=== PATIENT | male | born 1985 | race Caucasian/White ===

== ENCOUNTER 2016-07-12 21:03 | Emergency (ER) | payer SELFPAY ==
--- NOTE | 2016-07-12 21:17 | ER Document Report ---
ED Medical Screen (RME) - General Stated Complaint: POSSIBLE RASH Time seen by provider: 21:14 Mode of Arrival: Ambulatory Information source: Patient Notes: 31-year-old male thought he had jock itch because he had a rash on inner thighs 3 days ago. Today he noticed a knot on the left side of his scrotum near the base of the penis and now he is scared. He had unprotected intercourse and oral sex with new partners. He also has ulcers in his mouth, has been smoking crystal meth in the mornings for several weeks for energy. TRAVEL OUTSIDE OF THE [place] IN LAST 30 DAYS: No - Related Data Allergies/Adverse Reactions: No Known Allergies Allergy (Verified 01/07/13 09:40) Past Medical History Renal/ Medical History: Reports: Hx Kidney Stones - Immunizations Hx Diphtheria, Pertussis, Tetanus Vaccination: No Physical Exam - Vital signs Vitals: Temp Pulse Resp BP Pulse Ox 98.4 F 99 17 142/100 H 95 07/12/16 21:11 07/12/16 21:11 07/12/16 21:11 07/12/16 21:11 07/12/16 21:11 Course - Vital Signs Vital signs: Temp Pulse Resp BP Pulse Ox 98.4 F 99 17 142/100 H 95 07/12/16 21:11 07/12/16 21:11 07/12/16 21:11 07/12/16 21:11 07/12/16 21:11
[2016-07-12] MEDS ORDERED: HYDROCODONE/ACETAMINOPHEN 5-325 MG TABLET PO ONE (22:49)
[2016-07-12] MEDS ORDERED: IBUPROFEN 600 MG TABLET PO ONE (22:49)
[2016-07-12] MEDS ORDERED: SULFAMETHOXAZOLE/TRIMETHOPRIM 800-160 MG TABLET PO ONE (22:49)
--- NOTE | 2016-07-12 22:52 | ER Document Report ---
ED General - General Chief Complaint: Abscess Stated Complaint: POSSIBLE RASH Mode of Arrival: Ambulatory Notes: Patient is a 31 -year-old male without past medical history who presents with 2 days of progressively worsening pain to the left superior scrotum. Describes there is a constant dull, throbbing pain. Worsened by touching the area. Nothing improves the pain. No history of similar symptoms in the past. He denies any constitutional symptoms. No nausea, vomiting or abdominal pain. He has not seen his primary care physician regarding today's concerns. TRAVEL OUTSIDE OF THE [place] IN LAST 30 DAYS: No - Related Data Allergies/Adverse Reactions: No Known Allergies Allergy (Verified 01/07/13 09:40) Past Medical History - General Information source: Patient - Social History Smoking Status: Current Every Day Smoker Chew tobacco use (# tins/day): No Frequency of alcohol use: Social Drug Abuse: Methamphetamine Lives with: Alone Family History: Hypertension Patient has suicidal ideation: No Patient has homicidal ideation: No Renal/ Medical History: Reports: Hx Kidney Stones. Denies: Hx Peritoneal Dialysis Surgical Hx: Negative - Immunizations Hx Diphtheria, Pertussis, Tetanus Vaccination: No Review of Systems - Review of Systems Notes: Constitutional: Negative for fever. HENT: Negative for sore throat. Eyes: Negative for visual changes. Cardiovascular: Negative for chest pain. Respiratory: Negative for shortness of breath. Gastrointestinal: Negative for abdominal pain, vomiting or diarrhea. Genitourinary: Negative for dysuria. Positive for scrotal pain Musculoskeletal: Negative for back pain. Skin: Negative for rash. Neurological: Negative for headaches, weakness or numbness. 10 point ROS negative except as marked above and in HPI. Physical Exam - Vital signs Vitals: Temp Pulse Resp BP Pulse Ox 98.4 F 99 17 142/100 H 95 07/12/16 21:11 07/12/16 21:11 07/12/16 21:11 07/12/16 21:11 07/12/16 21:11 Interpretation: Hypertensive Notes: PHYSICAL EXAMINATION: GENERAL: Well-appearing, well-nourished and in no acute distress. HEAD: Atraumatic, normocephalic. EYES: Pupils equal round and reactive to light, extraocular movements intact, sclera anicteric, conjunctiva are normal. ENT: nares patent, oropharynx clear without exudates. Moist mucous membranes. NECK: Normal range of motion, supple without lymphadenopathy LUNGS: Breath sounds clear to auscultation bilaterally and equal. No wheezes rales or rhonchi. HEART: Regular rate and rhythm without murmurs ABDOMEN: Soft, nontender, normoactive bowel sounds. No guarding, no rebound. No masses appreciated. : There is a 0.5cmX0.5cm abscess to the left superior scrotum, painful on palpation. EXTREMITIES: Normal range of motion, no pitting or edema. No cyanosis. NEUROLOGICAL: No focal neurological deficits. Moves all extremities spontaneously and on command. PSYCH: Normal mood, normal affect. SKIN: Warm, Dry, normal turgor, no rashes or lesions noted. Course - Re-evaluation Re-evalutation: 07/13/16 01:47 Patient presents with a small abscess to the left superior scrotal wall which was incised and drained without difficulty. He will be started on TMP-SMX. Extensive counseling regarding his meth use also provided. Patient is otherwise well in appearance, vitals wnl. At this time will discharge with return precautions and follow-up recommendations. Verbal discharge instructions given a the bedside and opportunity for questions given. Medication warnings reviewed. Patient is in agreement with this plan and has verbalized understanding of return precautions and the need for primary care follow-up in the next 24-72 hours. - Vital Signs Vital signs: Temp Pulse Resp BP Pulse Ox 98.4 F 85 16 138/96 H 97 07/12/16 23:00 07/12/16 23:00 07/12/16 23:00 07/12/16 23:00 07/12/16 23:00 Discharge - Discharge Clinical Impression: Scrotal abscess Condition: Good Disposition: HOME, SELF-CARE Additional Instructions: You were seen for an abscess that required drainage. Please clean this area with soap and water twice daily and apply a topical antibiotic. Dress the area after each cleaning. Please return if you develop fever, vomiting, the pain at the site worsens, you notice spreading redness from the area, or you have any other symptoms that are concerning to you. Take care of yourself. You are young and have lots of life left to live. Don't use meth. Prescriptions: Sulfamethoxazole/Trimethoprim [Bactrim Ds Tablet] 2 each PO BID #20 tablet Forms: Return to Work
[2016-07-12 23:24] LABS: CHLAM PCR NOT DETECTED (NOT DETECT)
[2016-07-12 23:35] VITALS: BP 138/96
== END 2016-07-12 23:20 | disposition home or self-care (01) ==
LOC: ER 21:03
PROC: 0H9AXZZ Drainage of Inguinal Skin, External Approach (ICD-10-PCS; principal; 2016-07-12)
DX: N49.2 Inflammatory disorders of scrotum (principal); F17.200 Nicotine dependence, unspecified, uncomplicated; Z87.442 Personal history of urinary calculi
CPT/HCPCS: 87491; 87591; 99283

== ENCOUNTER 2016-07-15 16:18 | Emergency (ER) | payer SELFPAY ==
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
[2016-07-15 17:34] LABS: APPEARANCE,URINE CLEAR; BILIRUBIN,URINE NEGATIVE (NEGATIVE); GLUCOSE, URINE NEGATIVE (NEGATIVE); KETONES,URINE NEGATIVE (NEGATIVE); LEUKOCYTE ESTERASE,URINE NEGATIVE (NEGATIVE); NITRITE,URINE NEGATIVE (NEGATIVE); PROTEIN,URINE NEGATIVE (NEGATIVE); URINE SPECIFIC GRAVITY 1.003; UROBILINOGEN,URINE NEGATIVE mg/dL (<2.0)
[2016-07-15] MEDS ORDERED: HYDROMORPHONE HCL INJ/PF 2 MG/ML AMPULE IM ONE (18:12)
[2016-07-15] MEDS ORDERED: HYDROCODONE/ACETAMINOPHEN 5-325 MG 6 TAB/DSPK PO PRN (18:15)
--- NOTE | 2016-07-15 18:16 | ER Document Report ---
ED General - General Chief Complaint: Abscess Stated Complaint: POSSIBLE ABSCESS Mode of Arrival: Ambulatory Notes: Patient is a 31-year-old patient was seen in the emergency department 3 days ago for a left scrotal abscess who presents with worsening swelling to the area. He does describe ongoing dull, aching pain that is worsened by touching the area or being rubbed by clothing. Nothing improves the pain. Denies any associated spreading redness, fever, nausea, vomiting, abdominal pain, or dysuria. No testicular pain. He has not followed up with his primary care physician but states he is taking the antibiotics as directed from the prior visit. TRAVEL OUTSIDE OF THE [place] IN LAST 30 DAYS: No - Related Data Allergies/Adverse Reactions: No Known Allergies Allergy (Verified 07/15/16 17:00) Past Medical History - General Information source: Patient - Social History Smoking Status: Current Every Day Smoker Chew tobacco use (# tins/day): Yes Frequency of alcohol use: None Drug Abuse: None Lives with: Alone Family History: Hypertension Patient has suicidal ideation: No Patient has homicidal ideation: No Renal/ Medical History: Reports: Hx Kidney Stones. Denies: Hx Peritoneal Dialysis - Immunizations Hx Diphtheria, Pertussis, Tetanus Vaccination: No Review of Systems - Review of Systems Notes: Constitutional: Negative for fever. HENT: Negative for sore throat. Eyes: Negative for visual changes. Cardiovascular: Negative for chest pain. Respiratory: Negative for shortness of breath. Gastrointestinal: Negative for abdominal pain, vomiting or diarrhea. Genitourinary: Negative for dysuria. Positive for scrotal pain Musculoskeletal: Negative for back pain. Skin: Positive for swelling of the left scrotum Neurological: Negative for headaches, weakness or numbness. 10 point ROS negative except as marked above and in HPI. Physical Exam - Vital signs Vitals: Temp Pulse Resp BP Pulse Ox 98.1 F 90 16 146/92 H 96 07/15/16 16:36 07/15/16 16:36 07/15/16 16:36 07/15/16 16:36 07/15/16 16:36 Interpretation: Hypertensive Notes: PHYSICAL EXAMINATION: GENERAL: Well-appearing, well-nourished and in no acute distress. HEAD: Atraumatic, normocephalic. EYES: Pupils equal round and reactive to light, extraocular movements intact, sclera anicteric, conjunctiva are normal. ENT: nares patent, oropharynx clear without exudates. Moist mucous membranes. NECK: Normal range of motion, supple without lymphadenopathy LUNGS: Breath sounds clear to auscultation bilaterally and equal. No wheezes rales or rhonchi. HEART: Regular rate and rhythm without murmurs ABDOMEN: Soft, nontender, normoactive bowel sounds. No guarding, no rebound. No masses appreciated. : There is a 0.5 cm x 0.5 cm area of swelling to the left superior scrotum. Firm. No fluctuence. EXTREMITIES: Normal range of motion, no pitting or edema. No cyanosis. NEUROLOGICAL: No focal neurological deficits. Moves all extremities spontaneously and on command. PSYCH: Normal mood, normal affect. SKIN: Warm, Dry, normal turgor, no rashes or lesions noted. Course - Re-evaluation Re-evalutation: 07/15/16 18:14 Patient presents with superior left scrotal swelling approximately 0.5 cm x 0.5 cm, worse than when I saw him although there is no fluctuance to the area this time. Patient states that he has had a mild amount of drainage from the area and has been taking the TMP-SMX as directed. Bedside ultrasound was unable to identify any fluid collection in this area. A repeat incision and drainage was attempted with both needle and scalpel without any fluid able to be drained. A formal ultrasound will therefore be obtained to exclude any fluid collection that I have been unable identify with a bedside incision and drainage and bedside ultrasound. 07/15/16 21:36 Formal ultrasound has been obtained and does not identify any area of fluid collection. Patient's pain is improved at this time. Suspect likely this was a ingrown hair versus a lymph node. I have again encouraged patient to keep the area clean, dry, apply warm compresses, keep it covered with antibiotic ointment.At this time will discharge with return precautions and follow-up recommendations. Verbal discharge instructions given a the bedside and opportunity for questions given. Medication warnings reviewed. Patient is in agreement with this plan and has verbalized understanding of return precautions and the need for primary care follow-up in the next 24-72 hours. - Vital Signs Vital signs: Temp Pulse Resp BP Pulse Ox 97.8 F 98 16 157/89 H 96 07/15/16 22:02 07/15/16 22:02 07/15/16 22:02 07/15/16 22:02 07/15/16 22:02 Procedures - Incision and Drainage Left Groin Type: Simple Anesthetic type: 1% Lidocaine mL's of anesthetic: 2 Blade size: 11 I&D procedure: Betadine prep applied Incision Method: Incision made by scalpel Amount/type of drainage: no drainage Discharge - Discharge Clinical Impression: Scrotal abscess Condition: Good Disposition: HOME, SELF-CARE Additional Instructions: There is no fluid collection on the ultrasound or clinical exam at this time. Please clean this area with soap and water twice daily and apply a topical antibiotic. Dress the area after each cleaning. Please return if you develop fever, vomiting, the pain at the site worsens, you notice spreading redness from the area, or you have any other symptoms that are concerning to you.
[2016-07-15] MEDS ORDERED: METOCLOPRAMIDE HCL ORAL SOLN 10 MG/10 ML UDCUP PO ONE (19:31)
[2016-07-15] MEDS ORDERED: LIDOCAINE 2% VISCOUS SOLN 20 ML UDCUP PO ONE (19:31)
[2016-07-15] MEDS ORDERED: MAG HYDROX/AL HYDROX/SIMETH SUSP 30 ML UDCUP PO ONE (19:31)
[2016-07-15] MEDS ORDERED: HYDROCODONE/ACETAMINOPHEN 5-325 MG TABLET PO ONE (20:10)
[2016-07-15] MEDS ORDERED: LIDOCAINE 2% JELLY 5 ML TUBE TOP ONE (20:14)
[2016-07-15 22:25] VITALS: BP 157/89
== END 2016-07-15 22:02 | disposition home or self-care (01) ==
LOC: ER 16:18
PROC: 0H9AXZZ Drainage of Inguinal Skin, External Approach (ICD-10-PCS; principal; 2016-07-15)
DX: N49.2 Inflammatory disorders of scrotum (principal); F17.200 Nicotine dependence, unspecified, uncomplicated
CPT/HCPCS: 99284; 96372; 81001; 76870; 93976; 55100; J3490; J1170

== ENCOUNTER 2016-07-24 23:24 | Emergency (ER) | payer SELFPAY ==
[2016-07-24] MEDS ORDERED: NORMAL SALINE 1000 ML 1,000 ML IV ONE (23:37)
--- NOTE | 2016-07-24 23:38 | ER Document Report ---
ED Medical Screen (RME) - General Stated Complaint: POSSIBLE OVERDOSE Notes: 31 year old male, states he feels terrible after ingesting meth tonight, states he was been ingesting it daily for a week, denies SI or HI. States his heart is racing and he feels like he will pass out. TRAVEL OUTSIDE OF THE [place] IN LAST 30 DAYS: No - Related Data Allergies/Adverse Reactions: No Known Allergies Allergy (Verified 07/15/16 17:00) Past Medical History Renal/ Medical History: Reports: Hx Kidney Stones. Denies: Hx Peritoneal Dialysis - Immunizations Hx Diphtheria, Pertussis, Tetanus Vaccination: No Physical Exam - Vital signs Vitals: Temp Pulse Resp BP Pulse Ox 98.2 F 112 H 18 152/100 H 97 07/24/16 23:29 07/24/16 23:29 07/24/16 23:29 07/24/16 23:29 07/24/16 23:29 - General General appearance: Other - patient holding his head in his hands and bent over - Cardiovascular Rhythm: Regular, Tachycardia Heart sounds: Normal auscultation, S1 appreciated, S2 appreciated Course - Vital Signs Vital signs: Temp Pulse Resp BP Pulse Ox 98.2 F 112 H 18 152/100 H 97 07/24/16 23:29 07/24/16 23:29 07/24/16 23:29 07/24/16 23:29 07/24/16 23:29
[2016-07-25 00:59] LABS: ABSOLUTE BASOPHILS # (AUTO) 0.1 10^3/uL (0.0-0.2); ABSOLUTE EOSINOPHILS # (AUTO) 0.2 10^3/uL (0.0-0.6); ABSOLUTE LYMPHOCYTES (AUTO) 2.1 10^3/uL (0.5-4.7); ABSOLUTE MONOCYTES (AUTO) 0.9 10^3/uL (0.1-1.4); ABSOLUTE NEUT (AUTO) 6.8 10^3/uL (1.7-8.2); BASOPHILS % (AUTO) 0.8 % (0-2); EOSINOPHILS % (AUTO) 1.6 % (0-6); HEMATOCRIT 46.4 % (37.9-51.0); HEMOGLOBIN 15.7 g/dL (13.5-17.0); HGB HCT DIFFERENCE 0.7; LYMPHOCYTES % (AUTO) 20.8 % (13-45); MEAN CORPUSCULAR HEMOGLOBIN 28.5 pg (27.0-33.4); MEAN CORPUSCULAR VOLUME 84 fl (80-97); RED BLOOD COUNT 5.53 10^6/uL (4.35-5.55); RED CELL DISTRIBUTION WIDTH 13.3 % (11.5-14.0); SEGMENTED NEUTROPHILS % (AUTO) 67.8 % (42-78); WHITE BLOOD COUNT 10.1 10^3/uL (4.0-10.5)
[2016-07-25 01:09] LABS: ALANINE AMINOTRANSFERASE 35 U/L (21-72); ALBUMIN 4.4 g/dL (3.5-5.0); ALKALINE PHOSPHATASE 59 U/L (38-126); ANION GAP 11 (5-19); ASPARTATE AMINO TRANSFERASE 26 U/L (17-59); BILIRUBIN,TOTAL 0.5 mg/dL (0.2-1.3); BLOOD UREA NITROGEN 9 mg/dL (7-20); CALCIUM 9.7 mg/dL (8.4-10.2); CARBON DIOXIDE 26 mmol/L (22-30); CHLORIDE 105 mmol/L (98-107); CREATININE RESULT 1.04 mg/dL (0.52-1.25); GLUCOSE 79 mg/dL (75-110)
[2016-07-25 01:12] LABS: ALCOHOL < 10 mg/dL (NONE DETECTED)
[2016-07-25 02:55] VITALS: BP 121/87
[2016-07-25 04:03] LABS: APPEARANCE,URINE CLEAR; BILIRUBIN,URINE NEGATIVE (NEGATIVE); GLUCOSE, URINE NEGATIVE (NEGATIVE); KETONES,URINE NEGATIVE (NEGATIVE); LEUKOCYTE ESTERASE,URINE NEGATIVE (NEGATIVE); NITRITE,URINE NEGATIVE (NEGATIVE); PROTEIN,URINE NEGATIVE (NEGATIVE); URINE SPECIFIC GRAVITY 1.004; UROBILINOGEN,URINE NEGATIVE mg/dL (<2.0)
[2016-07-25 04:16] LABS: URINE BARBITURATES SCREEN NEGATIVE; URINE OPIATES LOW NEGATIVE
[2016-07-25 04:18] LABS: URINE METHADONE SCREEN NEGATIVE
[2016-07-25 04:25] LABS: URINE PHENCYCLIDINE SCREEN NEGATIVE
--- NOTE | 2016-07-25 04:42 | ER Document Report ---
ED Substance Abuse / Acc. OD - General Chief Complaint: Possible Overdose Stated Complaint: POSSIBLE OVERDOSE Notes: Patient is a 31-year-old male that comes emergency department for chief complaint of feeling "terrible" after ingesting methamphetamine tonight, he states he has been ingesting everyday for the past week, states that after tonight he felt like his heart was racing and he felt lightheaded like he might pass out. He denies any headache, chest pain, shortness of breath. He denies any fever. Patient denies SI or HI. Patient states he smokes marijuana, otherwise denies any other substance abuse or past medical history. TRAVEL OUTSIDE OF THE [place] IN LAST 30 DAYS: No - Related Data Allergies/Adverse Reactions: No Known Allergies Allergy (Verified 07/15/16 17:00) Past Medical History - General Information source: Patient - Social History Smoking Status: Current Every Day Smoker Chew tobacco use (# tins/day): No Frequency of alcohol use: Occasional Drug Abuse: Marijuana, Methamphetamine Lives with: Alone Family History: Hypertension Patient has suicidal ideation: No Patient has homicidal ideation: No Renal/ Medical History: Reports: Hx Kidney Stones. Denies: Hx Peritoneal Dialysis - Immunizations Hx Diphtheria, Pertussis, Tetanus Vaccination: No Review of Systems - Review of Systems Constitutional: No symptoms reported EENT: No symptoms reported Cardiovascular: See HPI Respiratory: No symptoms reported Gastrointestinal: No symptoms reported Genitourinary: No symptoms reported Male Genitourinary: No symptoms reported Musculoskeletal: No symptoms reported Skin: No symptoms reported Hematologic/Lymphatic: No symptoms reported Neurological/Psychological: See HPI Physical Exam - Vital signs Vitals: Temp Pulse Resp BP Pulse Ox 98.2 F 112 H 18 152/100 H 97 07/24/16 23:29 07/24/16 23:29 07/24/16 23:29 07/24/16 23:29 07/24/16 23:29 Interpretation: Normal - General General appearance: Alert, Anxious In distress: Mild - Patient holding his head in his hands, flushed, appears nervous - HEENT Head: Normocephalic, Atraumatic Eyes: Normal Conjunctiva: Normal Extraocular movements intact: Yes Eyelashes: Normal Pupils: PERRL Sinus: Normal Nasal: Normal Mouth/Lips: Normal Mucous membranes: Normal Pharynx: Normal Neck: Normal - Respiratory Respiratory status: No respiratory distress Chest status: Nontender Breath sounds: Normal. No: Decreased air movement Chest palpation: Normal. No: [place] frothy sputum - Cardiovascular Rhythm: Regular, Tachycardia Heart sounds: Normal auscultation, S1 appreciated, S2 appreciated Murmur: No - Abdominal Inspection: Normal Distension: No distension Bowel sounds: Normal Tenderness: Nontender Organomegaly: No organomegaly - Back Back: Normal, Nontender - Extremities General upper extremity: Normal inspection, Nontender, Normal color, Normal ROM , Normal temperature General lower extremity: Normal inspection, Nontender, Normal color, Normal ROM , Normal temperature, Normal weight bearing. 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 CBC, chemistry, EKG unremarkable. Urinalysis shows marijuana and unreportable amount of amphetamines. Discussed with patient, patient states that after tonight he intends to never use any recreational drugs other than marijuana in the future. Discussed short and long-term complications of recreational drug abuse. Continues to deny SI or HI, requesting to leave. Patient ambulates without any difficulty, is very well-appearing. - Vital Signs Vital signs: Temp Pulse Resp BP Pulse Ox 98.0 F 96 16 121/87 H 96 07/25/16 05:33 07/25/16 05:33 07/25/16 05:33 07/25/16 05:33 07/25/16 05:33 - Laboratory Result Diagrams: 07/25/16 00:46 07/25/16 00:46 Laboratory results interpreted by me: 07/25/16 00:46 Salicylates < 1.0 L Acetaminophen < 10 L Discharge - Discharge Clinical Impression: Substance abuse, Tachycardia Condition: Stable Disposition: HOME, SELF-CARE Additional Instructions: Continue to rehydrate and rest to recover. Avoid any recreational/illegal substances. Follow-up with primary care. Return to emergency department for any concerning symptoms. Forms: Return to Work, Smoking Cessation Education
--- NOTE | 2016-07-25 16:57 | EKG REPORT ---
SEVERITY:- OTHERWISE NORMAL ECG - SINUS RHYTHM BORDERLINE RIGHT AXIS DEVIATION : Confirmed by: Soniya Ibarra MD 25-Jul-2016 16:57:22
== END 2016-07-25 05:39 | disposition home or self-care (01) ==
LOC: ER 23:24
DX: F15.10 Other stimulant abuse, uncomplicated (principal); R00.0 Tachycardia, unspecified; R42 Dizziness and giddiness; F12.10 Cannabis abuse, uncomplicated; F17.200 Nicotine dependence, unspecified, uncomplicated; R23.2 Flushing
CPT/HCPCS: 93005; 99285; 96360; 36415; 80307 ×4; 85025; 80053; 81001; 93010; J7030

== ENCOUNTER 2016-08-10 13:41 | Emergency (ER) | payer SELFPAY ==
[2016-08-10] MEDS ORDERED: DIPHENHYDRAMINE HCL 50 MG/ML VIAL IV ONE (13:46)
[2016-08-10] MEDS ORDERED: FAMOTIDINE INJ/PF 20 MG/2 ML SDV IV ONE (13:46)
[2016-08-10] MEDS ORDERED: METHYLPREDNISOLONE INJ 125 MG/2 ML SDV IV ONE (13:48)
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
--- NOTE | 2016-08-10 14:48 | ER Document Report ---
ED General - General Chief Complaint: Other Stated Complaint: TONGUE PAIN Mode of Arrival: Ambulatory Information source: Patient Notes: This is a 31-year-old male with a history of polysubstance abuse and multiple prior visits for same who presents today for evaluation of tongue and throat symptoms after smoking marijuana this morning. He states that for the past hour or 2 he is felt "bubbling" on his tongue and down his throat to his stomach. It feels like "a cold soda going down". No complaints of tongue swelling. No trouble breathing or swallowing. No nausea or vomiting. Pt states he was initially quite anxious, but he was given meds on arrival ( benadryl, pepcid, solumedrol) and he is feeling much better now. He is concerned that the marijuana was laced with something. TRAVEL OUTSIDE OF THE [place] IN LAST 30 DAYS: No - Related Data Allergies/Adverse Reactions: No Known Allergies Allergy (Verified 08/10/16 13:48) Past Medical History - General Information source: Patient, [facility] Records - Social History Smoking Status: Current Every Day Smoker Drug Abuse: Marijuana, Methamphetamine Lives with: Alone Family History: Hypertension Patient has suicidal ideation: No Patient has homicidal ideation: No - Medical History Medical History: Other - substance abuse Renal/ Medical History: Reports: Hx Kidney Stones. Denies: Hx Peritoneal Dialysis - Immunizations Hx Diphtheria, Pertussis, Tetanus Vaccination: No Review of Systems - Review of Systems Constitutional: No symptoms reported. denies: Chills, Fever EENT: See HPI Cardiovascular: No symptoms reported. denies: Chest pain Respiratory: No symptoms reported. denies: Cough, Hurts to breathe, Short of breath Gastrointestinal: No symptoms reported. denies: Abdominal pain, Nausea, Vomiting Genitourinary: No symptoms reported Musculoskeletal: No symptoms reported Skin: No symptoms reported Hematologic/Lymphatic: No symptoms reported Neurological/Psychological: Anxiety Physical Exam - Vital signs Vitals: Temp Pulse Resp BP Pulse Ox 97.6 F 98 16 161/100 H 100 08/10/16 13:45 08/10/16 13:45 08/10/16 13:45 08/10/16 13:45 08/10/16 13:45 - Notes Notes: PHYSICAL EXAMINATION: GENERAL: Well-appearing, well-nourished and in no acute distress. Prefers to keep eyes closed. Cooperative with interview, conversant and not ill appearing. HEAD: Atraumatic, normocephalic. EYES: Pupils equal round and reactive to light, extraocular movements intact, sclera anicteric, conjunctiva are slightly injected bilaterally ENT: nares patent, oropharynx clear without exudates. Moist mucous membranes. No tongue edema or intraoral edema or lip edema noted. NECK: Normal range of motion, supple without lymphadenopathy LUNGS: Breath sounds clear to auscultation bilaterally and equal. No wheezes rales or rhonchi. HEART: Regular rate and rhythm without murmurs ABDOMEN: Soft, nontender, normoactive bowel sounds. No guarding, no rebound. No masses appreciated. EXTREMITIES: Normal range of motion, no pitting or edema. NEUROLOGICAL: Cranial nerves grossly intact. Normal speech. No gross focal motor or sensory deficits appreciated. PSYCH: Normal mood, normal affect. Appears relaxed. SKIN: Warm, Dry, normal turgor, no rashes or lesions noted. Course - Re-evaluation Re-evalutation: 08/10/16 16:53 Patient reevaluated. His vital signs are stable. He is somewhat sleepy but arousable and conversant. He states he feels better. He has no obvious signs of acute allergic reaction no tongue swelling. He is tolerating his secretions without difficulty. I suspect his symptoms were secondary to drug abuse and not acute allergic reaction. He will be discharged home when a ride is available. - Vital Signs Vital signs: Temp Pulse Resp BP Pulse Ox 97.4 F 79 16 133/93 H 99 08/10/16 16:27 08/10/16 16:27 08/10/16 13:45 08/10/16 16:27 08/10/16 16:27 Discharge - Discharge Clinical Impression: Substance abuse, Anxiety, Elevated blood pressure reading Condition: Stable Disposition: HOME, SELF-CARE Additional Instructions: AMPHETAMINE / METHAMPHETAMINE ABUSE: Amphetamines are addicting stimulants. Amphetamines overstimulate the nervous system and give a false feeling of power and mastery. These drugs may be obtained as prescription pills for weight loss, narcolepsy, or attention- deficit disorder. More often they're bought as an illegal street drug, methamphetamine (crank, crystal, speed). Using amphetamines repeatedly can lead to serious medical problems including malnutrition, severe depression, and paranoia. It can take increasing amounts to feel good. Eventually, there will be a "burn out." When you go off amphetamines there is a period of depression that may last for weeks or even months. High doses of amphetamines can cause seizures, confusion, hallucinations, delusions, high blood pressure, muscle damage, heart damage, or sudden . Many times these deadly complications occur even with "normal" doses. Injection of amphetamines is risky for developing abscesses, endocarditis ( heart infection), pneumonia, and AIDS. Withdrawal from amphetamines often causes anxiety, depression, and drug cravings. Some users become paranoid and psychotic. There may be cramps, nausea , and vomiting. Many treatment programs are available, but you must make the decision to quit. Medication can be prescribed to control the symptoms of amphetamine toxicity (beta blockers or benzodiazepines). Withdrawal symptoms may require tranquilizers. FOLLOW-UP CARE: If you have been referred to a physician for follow-up care, call the physician s office for an appointment as you were instructed or within the next two days. If you experience worsening or a significant change in your symptoms, notify the physician immediately or return to the Emergency Department at any time for re-evaluation.
[2016-08-10 14:49] LABS: APPEARANCE,URINE CLEAR; BILIRUBIN,URINE NEGATIVE (NEGATIVE); GLUCOSE, URINE NEGATIVE (NEGATIVE); KETONES,URINE NEGATIVE (NEGATIVE); LEUKOCYTE ESTERASE,URINE NEGATIVE (NEGATIVE); NITRITE,URINE NEGATIVE (NEGATIVE); PROTEIN,URINE NEGATIVE (NEGATIVE); URINE SPECIFIC GRAVITY 1.004; UROBILINOGEN,URINE NEGATIVE mg/dL (<2.0)
[2016-08-10 14:59] LABS: URINE BARBITURATES SCREEN NEGATIVE; URINE METHADONE SCREEN NEGATIVE; URINE OPIATES LOW NEGATIVE; URINE PHENCYCLIDINE SCREEN NEGATIVE
[2016-08-10 18:06] VITALS: BP 138/95
== END 2016-08-10 18:08 | disposition home or self-care (01) ==
LOC: ER 13:41
DX: F41.9 Anxiety disorder, unspecified (principal); F12.10 Cannabis abuse, uncomplicated; K08.89 Other specified disorders of teeth and supporting structures; F17.200 Nicotine dependence, unspecified, uncomplicated
CPT/HCPCS: 99283; 96374; 96375; 81001; 80307; J1200; J2930; S0028

== ENCOUNTER 2016-09-11 12:44 | Emergency (ER) | payer SELFPAY ==
[2016-09-11] MEDS ORDERED: AZITHROMYCIN 250 MG TABLET PO ONE (14:49)
[2016-09-11] MEDS ORDERED: CEFTRIAXONE INJ 250 MG VIAL IM ONE (14:49)
[2016-09-11] MEDS ORDERED: LIDOCAINE 1% INJ-PF (10 MG/ML) 30 ML SDV ONE (15:00)
--- NOTE | 2016-09-11 15:19 | ER Document Report ---
ED GI/ - General Chief Complaint: Penile Discharge Stated Complaint: PENAL DISCHARGE Mode of Arrival: Ambulatory Information source: Patient Notes: 31 y/o M presents to ED c/o dysuria and penile dishcarge. Pt reports over the last 2 weeks has had intermittently persistent dysuria and small amount of whitish penile discharge that seems to be worse in the mornings. was sexually active with one new partner over the last month. Reports he was monogamous but is suspicious she was not. Pt also reports recurring draining lesion/abscess to left upper skin of scrotum. was seen in this ED last month and treated with I&D and rx course of Bactrim which he states did not take but symptoms resolved. Denies fever, hematuria, flank pain, testicular pain or swelling, hematospermia. TRAVEL OUTSIDE OF THE [place] IN LAST 30 DAYS: No - HPI Timing/Duration: Intermittent, Persistent Quality of pain: Burning Severity at maximum: Mild Severity in ED: Mild Pain Level: 1 Similar symptoms previously: Yes Recently seen / treated by doctor: Yes - Related Data Allergies/Adverse Reactions: No Known Allergies Allergy (Verified 09/11/16 13:53) Past Medical History - General Information source: Patient - Social History Smoking Status: Current Every Day Smoker Chew tobacco use (# tins/day): No Frequency of alcohol use: Social Drug Abuse: Marijuana Lives with: Family Family History: Hypertension Renal/ Medical History: Reports: Hx Kidney Stones. Denies: Hx Peritoneal Dialysis Surgical Hx: Negative - Immunizations Hx Diphtheria, Pertussis, Tetanus Vaccination: Yes Review of Systems - Review of Systems Constitutional: No symptoms reported EENT: No symptoms reported Cardiovascular: No symptoms reported Respiratory: No symptoms reported Gastrointestinal: No symptoms reported Genitourinary: See HPI Male Genitourinary: See HPI Musculoskeletal: No symptoms reported Skin: See HPI Hematologic/Lymphatic: No symptoms reported Neurological/Psychological: No symptoms reported -: Yes All other systems reviewed and negative Physical Exam - Vital signs Vitals: Temp Pulse Resp BP Pulse Ox 98.4 F 86 18 126/80 H 99 09/11/16 12:46 09/11/16 12:46 09/11/16 12:46 09/11/16 12:46 09/11/16 12:46 - General General appearance: Appears well, Alert In distress: None - HEENT Head: Normocephalic, Atraumatic Eyes: Normal Conjunctiva: Normal Eyelashes: Normal Pupils: PERRL - Respiratory Respiratory status: No respiratory distress Chest status: Nontender Breath sounds: Normal Chest palpation: Normal - Cardiovascular Rhythm: Regular Heart sounds: Normal auscultation Murmur: No Pulses: Normal: Radial Normal capillary refill: Yes - Abdominal Inspection: Normal Distension: No distension Bowel sounds: Normal Tenderness: Nontender. No: Tender, McBurney's point, Saldana's sign, Guarding, Rebound, Other Organomegaly: No organomegaly - Genitourinary Tenderness: Nontender, Lesions - pt has very small <1cm diameter slightly raised area of tenderness to left upper scrotum with scant purulent drainage. no induration, localized swelling, fluctuance, epididymis or testicular tenderness.. No: Testicle tender, Epididymis tender Cremasteric reflex: Normal Scrotum: Normal. No: Swelling, Redness, Hot to touch - Back Back: Normal, Nontender. No: CVA tenderness - Extremities General upper extremity: Normal inspection, Nontender, Normal color, Normal ROM , Normal strength, Normal temperature General lower extremity: Normal inspection, Nontender, Normal color, Normal ROM , Normal strength, Normal temperature, Normal weight bearing - Neurological Neuro grossly intact: Yes Cognition: Normal Orientation: AAOx4 Nancy Coma Scale Eye Opening: Spontaneous Nancy Coma Scale Verbal: Oriented Nancy Coma Scale Motor: Obeys Commands [place] Coma Scale Total: 15 Speech: Normal Motor strength normal: LUE, RUE, LLE, RLE Sensory: Normal - Skin Skin Temperature: Warm Skin Moisture: Dry Skin Color: Normal Course - Re-evaluation Re-evalutation: 09/11/16 15:30 Pt hemodynamically stable, in no distress, afebrile, non-toxic, and very well appearing. Patient left upper scrotum appears to be very small mild draining abscess versus localized infection of ingrown hair. Will give course of cephalexin. Will treat patient for likely STI exposure with 1g PO azithromycin and 250mg IM Rocephin pending chlamydia/gonorrhea screen. Patient appears stable for discharge and agrees with home care, follow-up, and ED return precautions. 09/11/16 17:27 Called and spoke with patient on phone at [phone] to notify him of positive Gonorrhea results. - Vital Signs Vital signs: Temp Pulse Resp BP Pulse Ox 98.4 F 78 17 102/71 98 09/11/16 12:46 09/11/16 15:45 09/11/16 15:45 09/11/16 15:45 09/11/16 15:45 - Laboratory Laboratory results interpreted by me: 09/11/16 14:15 N.gonorrhoeae DNA (PCR) DETECTED H Discharge - Discharge Clinical Impression: Urethritis, Abscess Condition: Stable Disposition: HOME, SELF-CARE Instructions: Azithromycin ([facility]), Cephalexin ([facility]), Rocephin ([facility]), Urethritis ([facility]), Gonorrhea ([facility]) Additional Instructions: Keep area clean and dry. Follow-up with your primary care provider this week. Return to the Emergency Department for any worsening symptoms or concerns. Prescriptions: Cephalexin Monohydrate [Keflex 500 mg Capsule] 500 mg PO BID 5 Days Forms: Return to Work Referrals: [facility] [NO LOCAL MD] - Follow up in 3-5 days
[2016-09-11 15:46] VITALS: BP 102/71
[2016-09-11 15:58] LABS: CHLAM PCR NOT DETECTED (NOT DETECT)
== END 2016-09-11 15:38 | disposition home or self-care (01) ==
LOC: ER 12:44
DX: R36.9 Urethral discharge, unspecified (principal); R30.0 Dysuria; F17.200 Nicotine dependence, unspecified, uncomplicated; N34.2 Other urethritis; N48.21 Abscess of corpus cavernosum and penis
CPT/HCPCS: 99283; 96372; 87086; 87491; 87591; J0696

== ENCOUNTER 2017-02-06 18:57 | Emergency (ER) | payer SELFPAY ==
[2017-02-06 19:08] VITALS: BP 138/88
[2017-02-06 20:32] LABS: APPEARANCE,URINE CLEAR; BILIRUBIN,URINE NEGATIVE (NEGATIVE); GLUCOSE, URINE NEGATIVE (NEGATIVE); KETONES,URINE NEGATIVE (NEGATIVE); LEUKOCYTE ESTERASE,URINE MODERATE (NEGATIVE); NITRITE,URINE NEGATIVE (NEGATIVE); PROTEIN,URINE NEGATIVE (NEGATIVE); URINE SPECIFIC GRAVITY 1.008; UROBILINOGEN,URINE NEGATIVE mg/dL (<2.0)
[2017-02-06] MEDS ORDERED: LIDOCAINE 1% INJ-PF (10 MG/ML) 30 ML SDV INJ ONE (21:29)
[2017-02-06] MEDS ORDERED: NITROFURANTOIN MONOHYD/M-CRYST 100 MG CAPSULE PO ONE (21:29)
[2017-02-06] MEDS ORDERED: CEFTRIAXONE INJ 250 MG VIAL IM ONE (21:29)
[2017-02-06] MEDS ORDERED: AZITHROMYCIN 250 MG TABLET PO ONE (21:29)
--- NOTE | 2017-02-06 21:34 | ER Document Report ---
ED GI/ - General Chief Complaint: STD Exposure Stated Complaint: BLADDER PROBLEMS Time Seen by Provider: 02/06/17 21:28 Mode of Arrival: Ambulatory Information source: Patient Notes: 31-year-old male presents to ED for urethral pain discomfort and pain with intercourse pain with urination. He states that he was treated with for gonorrhea 3 months ago and had intercourse with his significant other before and after his treatment without her being treated. TRAVEL OUTSIDE OF THE [place] IN LAST 30 DAYS: No - HPI Patient complains to provider of: Other - Pain with urination penile discharge pain with sexual intercourse. Onset: Other - 2 weeks Timing/Duration: Gradual, Worse Quality of pain: Burning, Sharp Severity at maximum: Moderate Severity in ED: Moderate Pain Level: 3 Location: Other - penis Associated symptoms: Penile discharge, Urinary hesitancy, Urinary frequency, Other - pain with urination Exacerbated by: Other - urination or sexual intercourse Relieved by: Denies Similar symptoms previously: Yes Recently seen / treated by doctor: No - Related Data Allergies/Adverse Reactions: No Known Allergies Allergy (Verified 02/06/17 19:08) Past Medical History - General Information source: Patient - Social History Smoking Status: Current Every Day Smoker Cigarette use (# per day): Yes - ppd Chew tobacco use (# tins/day): No Smoking Education Provided: Yes Frequency of alcohol use: Occasional Drug Abuse: Marijuana, Methamphetamine - no meth in a month as of 02/06/17 Lives with: Spouse/Significant other Family History: Hypertension Patient has suicidal ideation: No Patient has homicidal ideation: No - Past Medical History Cardiac Medical History: Reports: Other - tachycardia from drugs Pulmonary Medical History: Reports: None EENT Medical History: Reports: None Neurological Medical History: Reports: None Endocrine Medical History: Reports: Hx Hyperthyroidism - - Renal/ Medical History: Reports: Hx Kidney Stones Malignancy Medical History: Reports None GI Medical History: Reports: None Musculoskeltal Medical History: Reports Hx Musculoskeletal Deformity, Reports Hx Musculoskeletal Trauma Skin Medical History: Reports None Psychiatric Medical History: Reports: None Traumatic Medical History: Reports: None Infectious Medical History: Reports: None Past Surgical History: Reports: Other - Surgery for swollen lymph nodes - Immunizations Hx Diphtheria, Pertussis, Tetanus Vaccination: Yes Review of Systems - Review of Systems Constitutional: No symptoms reported EENT: No symptoms reported Cardiovascular: No symptoms reported Respiratory: No symptoms reported Gastrointestinal: No symptoms reported Genitourinary: Burning, Urgency Male Genitourinary: Penile discharge, Other - penile pain with intercourse Musculoskeletal: No symptoms reported Skin: No symptoms reported Hematologic/Lymphatic: No symptoms reported Neurological/Psychological: No symptoms reported -: Yes All other systems reviewed and negative Physical Exam - Vital signs Vitals: Temp Pulse Resp BP Pulse Ox 98.6 F 84 18 138/88 H 98 02/06/17 19:06 02/06/17 19:06 02/06/17 19:02/06/17 19:06 02/06/17 19:06 Interpretation: Normal - General General appearance: Appears well, Alert - HEENT Head: Normocephalic, Atraumatic Eyes: Normal Pupils: PERRL - Respiratory Respiratory status: No respiratory distress Chest status: Nontender Breath sounds: Normal Chest palpation: Normal - Cardiovascular Rhythm: Regular Heart sounds: Normal auscultation Murmur: No - Abdominal Inspection: Normal Distension: No distension Bowel sounds: Normal Tenderness: Nontender Organomegaly: No organomegaly - Back Back: Normal, Nontender - Extremities General upper extremity: Normal inspection, Nontender, Normal color, Normal ROM , Normal temperature General lower extremity: Normal inspection, Nontender, Normal color, Normal ROM , Normal temperature, Normal weight bearing. No: Pankaj's sign - Neurological Neuro grossly intact: Yes Cognition: Normal Orientation: AAOx4 [place] Coma Scale Eye Opening: Spontaneous Nancy Coma Scale Verbal: Oriented Nancy Coma Scale Motor: Obeys Commands [place] Coma Scale Total: 15 Speech: Normal Motor strength normal: LUE, RUE, LLE, RLE Sensory: Normal - Psychological Associated symptoms: Normal affect, Normal mood - Skin Skin Temperature: Warm Skin Moisture: Dry Skin Color: Normal Course - Re-evaluation Re-evalutation: 02/06/17 22:03 Patient left before the serology results returned he was positive for gonorrhea. He was called and informed of his results. He had already been treated with azithromycin Rocephin and Macrobid for the UTI. Patient was discharged home. - Vital Signs Vital signs: Temp Pulse Resp BP Pulse Ox 98.6 F 84 18 138/88 H 98 02/06/17 19:06 02/06/17 19:06 02/06/17 19:06 02/06/17 19:06 02/06/17 19:06 - Laboratory Laboratory results interpreted by me: 02/06/17 02/06/17 20:05 20:05 Urine Blood SMALL H Ur Leukocyte Esterase MODERATE H N.gonorrhoeae DNA (PCR) DETECTED H Discharge - Discharge Clinical Impression: Urethritis UTI (urinary tract infection) Qualifiers: Urinary tract infection type: site unspecified Hematuria presence: with hematuria Qualified Code(s): N39.0 - Urinary tract infection, site not specified Condition: Stable Disposition: HOME, SELF-CARE Instructions: Family Physicians / Practices Additional Instructions: Urethritis You have urethritis, an infection of the urethra. The usual symptoms are pain on urination and discharge. The infection is often caused by gonorrhea or chlamydia. Treatment is antibiotics. In addition, any sexual contacts should be evaluated by a physician as soon as possible. As this infection can be transmitted sexually, refrain from sexual activity until the infection is confirmed as healed by your physician. If gonorrhea or chlamydia is found on culture, the health department must be notified. Call the doctor at once if you develop difficulty passing your urine, high fever, rash, joint swelling, or other new symptoms. URINARY TRACT INFECTION: Your evaluation indicates that you have a urinary tract infection. This is due to germs growing in the bladder. This is a common problem. This infection usually responds quickly to antibiotics. Your antibiotic should be taken exactly as prescribed. Drink plenty of fluids -- three to four quarts a day. Occasionally, a bladder anesthetic will be prescribed to help stop the feeling of urgency until the antibiotic has a chance to clear the infection. This may cause your urine to be dark orange. Certain urine infections require a culture. If the doctor obtained a culture, the results will be back in two days. You should call to see if a change in treatment is needed. A repeat urinalysis after you finish treatment is often recommended. The physician will let you know if further testing is required. Call the doctor if you develop fever, chills, flank pain, inability to urinate, or blood in the urine. NITROFURANTOIN (MACRODANTIN, MACROBID): You have received a prescription for nitrofurantoin (Macrodantin). This antibiotic is used for urinary tract infections. Women who are or nursing should notify the physician before taking this medicine. If you have ever had a problem caused by this medication in the past, be sure the physician is aware of it. Common side effects of this medicine include nausea, vomiting, or decreased appetite. Notify your physician if these side effects become severe. Immediately stop this medicine and call the physician if you develop cough , shortness of breath, chest pain, weakness, jaundice (yellow color of the skin and whites of the eyes), or a skin rash. Rocephin You have been given an injection of an antibiotic called Rocephin ( ceftriaxone). Sometimes the injection must be combined with antibiotic pills. For some infections, such as an uncomplicated ear infection, Rocephin provides all the antibiotic that's needed. The antibiotic will be in your body for about two days. For serious infections, we usually repeat doses of Rocephin daily. Side effects are very unusual following a shot. Women may develop vaginal yeast infections, and babies can get yeast (thrush) in the mouth following the use of antibiotics. Contact your physician if you have symptoms with this medication. Allergy to this antibiotic can result in hives, wheezing, faintness, or itching. If symptoms of allergy occur, call the doctor at once. Azithromycin Azithromycin (Zithromax) is a broad spectrum antibiotic in the same class as erythromycin. It can treat a variety of bacterial infections, but is most frequently used for respiratory infections. Azithromycin is extremely long-lasting. It accumulates in body tissues and continues to kill bacteria for many days. In order to improve absorption, Azithromycin should be taken at least one hour before or two hours after a meal. It does not have the same strong tendency to upset the stomach as erythromycin and is usually very well tolerated. Patients who have had a rash or other true allergic reactions to erythromycin should not take this medication. Call if you develop gastrointestinal distress, severe diarrhea, rash, hives, itching, or shortness of breath. Follow up with the health department for any future STD checks or to check for hepatitis HIV and syphilis. FOLLOW-UP CARE: If you have been referred to a physician for follow-up care, call the physician s office for an appointment as you were instructed or within the next two days. If you experience worsening or a significant change in your symptoms, notify the physician immediately or return to the Emergency Department at any time for re-evaluation. Prescriptions: Nitrofurantoin/Nitrofuran Mac [Macrobid 100 mg Capsule] 1 tab PO BID #20 capsule Forms: Elevated Blood Pressure, Smoking Cessation Education
[2017-02-06 21:56] LABS: CHLAM PCR NOT DETECTED (NOT DETECT)
== END 2017-02-06 21:57 | disposition home or self-care (01) ==
LOC: ER 18:57
DX: A54.01 Gonococcal cystitis and urethritis, unspecified (principal); N39.0 Urinary tract infection, site not specified; R31.9 Hematuria, unspecified; F17.210 Nicotine dependence, cigarettes, uncomplicated
CPT/HCPCS: 99283; 96372; 87086; 81001; 87491; 87591; J3490; J0696; J8499